=== PATIENT | female | born 2005 | race Caucasian/White ===

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

== ENCOUNTER 2023-03-20 09:23 | Outpatient (CLI) | payer OTHER, SELFPAY | END 2023-03-20 09:24 | disposition home or self-care (01) | PROVIDERS: PCP Family Medicine; Visit Provider Family Medicine | DX: R63.4 Abnormal weight loss (principal); R11.0 Nausea; Z13.29 Encounter for screening for other suspected endocrine disorder | CPT/HCPCS: 80053; 84443 ==

== ENCOUNTER 2024-04-11 23:04 | Emergency (ER) | payer OTHER, SELFPAY ==
[2024-04-11 23:11] VITALS: BP 132/80; PULSE 123; RESP 18; TEMP 38; O2SAT 98; BMI 19.4
--- NOTE | 2024-04-11 23:23 | ED.ABDPAIN ---
HPI - Abdominal Pain General Time Seen by Provider: 23:23 <Milagros Escalante MD - Last Filed: 04/12/24 00:27> Date Seen: 04/11/24 <Milagros Escalante MD - Last Filed: 04/12/24 00:27> Chief Complaint: Abdominal Pain <Milagros Escalante MD - Last Filed: 04/12/24 00:27> Stated Complaint: Lower abdominal/back pain, fever <Milagros Escalante MD - Last Filed: 04/12/24 00:27> Time Seen by Provider: 04/11/24 23:23 <Milagros Escalante MD - Last Filed: 04/12/24 00:27> Source: patient and RN notes reviewed <Milagros Escalante MD - Last Filed: 04/12/24 00:27> Mode of arrival: ambulatory <Milagros Escalante MD - Last Filed: 04/12/24 00:27> Limitations: no limitations <Milagros Escalante MD - Last Filed: 04/12/24 00:27> History of Present Illness HPI narrative: Patient is a very pleasant 18-year-old female currently on control with history of chronic back pain who comes to the emergency room with her mom for evaluation regarding fever, urinary symptoms increasing right-sided back and abdominal pain. Patient had the onset of urinary frequency urgency last SaturdayApril 05. She tried natural remedies and thought maybe that her symptoms improved somewhat but she started experiencing right flank and abdominal pain and this is gradually worsened and today she now has a fever and nausea. As an infant Anastasiia had ureteral reflux and was on a prophylactic antibiotic from 3 months until 1 years of age. No known infections during her childhood. She is rate the in the pain in her abdomen a 7/10 and her back of 10/10. She has not noticed any blood in her urine. She is very nauseated. Patient is sexually active, started her last pack of control pills on April 05 after a normal period. Is sexually active with 1 partner and this is unprotected. Patient has had diarrhea but is nonbloody. Maternal grandmother with history of Crohn's disease. <Milagros Escalante MD - Last Filed: 04/12/24 00:27> Related Data Home Medications: Previous Rx's ?Medication ?Instructions ?Recorded dextroamphetamine-amphetamine 20 20 mg PO QDAY #90 tabs 01/03/24 mg tablet norgestimate 0.25 mg-ethinyl 1 tab PO QDAY #84 tabs 03/23/24 estradiol 35 mcg tablet venlafaxine 150 mg 150 mg PO DAILY #90 caps 03/23/24 capsule,extended release 24 hr <Milagros Escalante MD - Last Filed: 04/12/24 00:27> Allergies/Adverse Reactions: Allergies Allergy/AdvReac Type Severity Reaction Status Date / Time No Known Drug Allergies Allergy Verified 03/23/24 14:29 <Milagros Escalante MD - Last Filed: 04/12/24 00:27> Review of Systems Status of ROS Reports: 10 or more systems reviewed and unremarkable except as noted in History and below <Milagros Escalante MD - Last Filed: 04/12/24 00:27> Const Reports: fever, chills and fatigue <Milagros Escalante MD - Last Filed: 04/12/24 00:27> Eyes Denies: change in vision <Milagros Escalante MD - Last Filed: 04/12/24 00:27> ENMT Denies: throat pain, neck pain or nasal congestion <Milagros Escalante MD - Last Filed: 04/12/24 00:27> Cardio Denies: chest pain, swelling of feet/ankles or shortness of breath with exertion <Milagros Escalante MD - Last Filed: 04/12/24 00:27> Resp Denies: shortness of breath <Milagros Escalante MD - Last Filed: 04/12/24 00:27> GI Reports: abdominal pain, nausea and diarrhea; Denies: vomiting or blood in stool <Milagros Escalante MD - Last Filed: 04/12/24 00:27> Reports: painful urination, urinary frequency and urinary urgency <Milagros Escalante MD - Last Filed: 04/12/24 00:27> Musculo Reports: back pain (Right flank); Denies: neck pain <Milagros Escalante MD - Last Filed: 04/12/24 00:27> Integ/Breast Denies: rash <Milagros Escalante MD - Last Filed: 04/12/24 00:27> Endo Reports: fatigue <Milagros Escalante MD - Last Filed: 04/12/24 00:27> PFSH PFSH Family History: Family History Other Thyroid disease <Milagros Escalante MD - Last Filed: 04/12/24 00:27> Social History: Social History Smoking Status: Never smoker <Milagros Escalante MD - Last Filed: 04/12/24 00:27> Exam Narrative: Exam Narrative: Alert and oriented. Nontoxic in appearance but definitely fatigued. External ears eyes nose clear. Mentating normally. Lips are dry. Moist mucous membranes. Heart with a tachycardic rate but normal rhythm. Lungs are clear bilaterally. Abdomen is with some tenderness right-sided with positive right CVA tenderness with percussion. Lower extremities without edema. <Milagros Escalante MD - Last Filed: 04/12/24 00:27> Const: Vital Signs, click to edit/add: Vital Signs - 24 hr 04/11/24 23:11 Temperature 100.4 F H Pulse Rate [Left P ulse Oximeter] 123 H Respiratory Rate 18 Blood Pressure [Ri ght Upper Arm] 132/80 Pulse Oximetry 98 Oxygen Delivery Me thod Room Air <Milagros Escalante MD - Last Filed: 04/12/24 00:27> Vital Signs, click to edit/add: Vital Signs - 24 hr 04/11/24 23:11 Temperature 100.4 F H Pulse Rate [Left P ulse Oximeter] 123 H Respiratory Rate 18 Blood Pressure [Ri ght Upper Arm] 132/80 Pulse Oximetry 98 Oxygen Delivery Me thod Room Air <Emerson Marte MD - Last Filed: 04/12/24 02:06> Documenting provider has reviewed patient's vital signs: yes <Milagros Escalante MD - Last Filed: 04/12/24 00:27> Course Course ED Course: Differential diagnosis includes but is not limited to pyelonephritis, UTI, kidney stone, Crohn's flare, viral gastroenteritis, STI. Will place IV, give 1 L of normal saline, Toradol 15 mg IV, Zofran 4 mg IV. Will check CBC, comprehensive panel, lactate, blood culture x1. Will also add procalcitonin. Given patient's onset of fever, tachycardia obviously concerned about possible sepsis. She does not meet criteria for severe sepsis at this time. Will also test for GC chlamydia with history of unprotected sex. [place] [id number] of the abdomen and pelvis. Following collection of blood culture patient was given Rocephin 1 g IV. <Milagros Escalante MD - Last Filed: 04/12/24 00:27> Reevaluation(s) Reevaluation #1: This patient is signed out to my colleague Dr. Marte for CT and laboratory results as well as disposition. <Milagros Escalante MD - Last Filed: 04/12/24 00:27> Time of Reevaluation #2: 02:04 <Emerson Marte MD - Last Filed: 04/12/24 02:06> Reevaluation #2: CT independently interpreted by javi consistent with acute pyelonephritis. Mild elevation in the CRP but normal lactate, normal procalcitonin, normal comprehensive panel with no evidence for acute renal failure. <Emerson Marte MD - Last Filed: 04/12/24 02:06> Vital Signs Vital signs: Initial Vital Signs Temperature 100.4 F H 04/11/24 23:11 Temperature Source Temporal Artery Scan 04/11/24 23:11 Pulse Rate 123 H 04/11/24 23:11 Pulse Rhythm Regular 04/11/24 23:11 Respiratory Rate 18 04/11/24 23:11 Blood Pressure 132/80 04/11/24 23:11 Blood Pressure Mean 97 04/11/24 23:11 Blood Pressure Position Sitting 04/11/24 23:11 Pulse Oximetry 98 04/11/24 23:11 Oxygen Delivery Method Room Air 04/11/24 23:11 Vital Signs Temperature 100.4 F H 04/11/24 23:11 Pulse Rate 123 H 04/11/24 23:11 Respiratory Rate 18 04/11/24 23:11 Blood Pressure 132/80 04/11/24 23:11 Pulse Oximetry 98 04/11/24 23:11 Oxygen Delivery Method Room Air 04/11/24 23:11 Temperature 100.4 F H 04/11/24 23:11 Pulse Rate 123 H 04/11/24 23:11 Respiratory Rate 18 04/11/24 23:11 Blood Pressure 132/80 04/11/24 23:11 Pulse Oximetry 98 04/11/24 23:11 Oxygen Delivery Method Room Air 04/11/24 23:11 <Milagros Escalante MD - Last Filed: 04/12/24 00:27> Initial Vital Signs Temperature 100.4 F H 04/11/24 23:11 Temperature Source Temporal Artery Scan 04/11/24 23:11 Pulse Rate 123 H 04/11/24 23:11 Pulse Rhythm Regular 04/11/24 23:11 Respiratory Rate 18 04/11/24 23:11 Blood Pressure 132/80 04/11/24 23:11 Blood Pressure Mean 97 04/11/24 23:11 Blood Pressure Position Sitting 04/11/24 23:11 Pulse Oximetry 98 04/11/24 23:11 Oxygen Delivery Method Room Air 04/11/24 23:11 Vital Signs Temperature 100.4 F H 04/11/24 23:11 Pulse Rate 123 H 04/11/24 23:11 Respiratory Rate 18 04/11/24 23:11 Blood Pressure 132/80 04/11/24 23:11 Pulse Oximetry 98 04/11/24 23:11 Oxygen Delivery Method Room Air 04/11/24 23:11 Temperature 100.4 F H 04/11/24 23:11 Pulse Rate 123 H 04/11/24 23:11 Respiratory Rate 18 04/11/24 23:11 Blood Pressure 132/80 04/11/24 23:11 Pulse Oximetry 98 04/11/24 23:11 Oxygen Delivery Method Room Air 04/11/24 23:11 <Emerson Marte MD - Last Filed: 04/12/24 02:06> Medications Administered Medications: Discontinued Medications Generic Name Dose Route Start Last Admin Trade Name Freq PRN Reason Stop Dose Admin Sodium Chloride 1,000 mls @ 1,000 mls/hr 04/11/24 23:31 04/12/24 00:07 0.9 % Sodium Chloride 1000 Ml IV 04/12/24 00:30 1,000 mls/hr .Q1H CRYSTAL Administration Ceftriaxone Sodium 1 gm/ 100 mls @ 200 mls/hr 04/12/24 00:20 04/12/24 01:04 Sodium Chloride IVPB 08/18/24 00:21 Infused ONCE ONE Infusion Ketorolac Tromethamine 15 mg 04/11/24 23:31 04/12/24 00:07 Ketorolac 15 Mg/Ml Inj IVP 04/11/24 23:32 15 mg ONCE ONE Administration Ondansetron HCl 4 mg 04/11/24 23:31 04/12/24 00:07 Ondansetron 2 Mg/Ml Inj IVP 04/11/24 23:32 4 mg ONCE ONE Administration <Milagros Escalante MD - Last Filed: 04/12/24 00:27> Discontinued Medications Generic Name Dose Route Start Last Admin Trade Name Freq PRN Reason Stop Dose Admin Sodium Chloride 1,000 mls @ 1,000 mls/hr 04/11/24 23:31 04/12/24 00:07 0.9 % Sodium Chloride 1000 Ml IV 04/12/24 00:30 1,000 mls/hr .Q1H CRYSTAL Administration Ceftriaxone Sodium 1 gm/ 100 mls @ 200 mls/hr 04/12/24 00:20 04/12/24 01:04 Sodium Chloride IVPB 04/12/24 00:21 Infused ONCE ONE Infusion Ketorolac Tromethamine 15 mg 04/11/24 23:31 04/12/24 00:07 Ketorolac 15 Mg/Ml Inj IVP 04/11/24 23:32 15 mg ONCE ONE Administration Ondansetron HCl 4 mg 04/11/24 23:31 04/12/24 00:07 Ondansetron 2 Mg/Ml Inj IVP 04/11/24 23:32 4 mg ONCE ONE Administration <Emerson Marte MD - Last Filed: 04/12/24 02:06> MDM - Abdominal Pain Lab Data Labs: Lab Results 04/11/24 04/11/24 04/12/24 Range/Units 23:20 23:40 00:01 WBC 17.33 H (4.50-11.00) K/uL RBC 4.65 (4.00-5.20) m/uL Hgb 13.6 (12.0-16.0) gm/dL Hct 40.7 (33.0-51.0) % MCV 88 (80-100) fL MCH 29 (26-34) pg MCHC 33 (32-36) gm/dL RDW Coeff of Hafsa 12.3 (11.5-15.5) % Plt Count 337 (140-440) K/uL Neut % (Auto) 81.2 H (42.0-72.0) % Lymph % (Auto) 6.6 L (20-44) % [place] % (Auto) 11.0 (0.0-11.0) % Eos % (Auto) 0.1 (0.0-7.0) % Baso % (Auto) 0.2 (0.0-3.0) % Neut # (Auto) 14.10 H (1.7-7.0) K/uL Lymph # (Auto) 1.10 (0.90-2.90) K/uL [place] # (Auto) 1.90 H (0.00-0.90) K/UL Eos # (Auto) 0.00 (0.00-0.50) K/uL Baso # (Auto) 0.00 (0.00-0.30) K/uL Abs Immat Gran (auto) 0.20 (0.00-0.30) K/uL Imm/Tot Granulo (auto) 0.9 % Sodium 134 L (135-149) mmol/L Potassium 3.4 L (3.6-5.1) mmol/L Chloride 101 (96-114) mmol/L Carbon Dioxide 23 (20-32) mmol/L Anion Gap 10 (7-15) mEq/L BUN 9 (5-24) mg/dL Creatinine 0.7 (0.5-1.5) mg/dL Estimated Creat Clear 110.16 Estimated GFR 127 ml/min Glucose 98 (60-115) mg/dL Lactate 0.9 (0.5-1.9) mmol/L Calcium 9.4 (8.4-10.6) mg/dL Total Bilirubin 1.2 (0.1-1.5) mg/dL AST 28 (12-35) U/L ALT 18 (4-35) U/L Alkaline Phosphatase 71 (40-150) U/L C-Reactive Protein 8.7 H (0.5-1.0) mg/dL Total Protein 7.6 (6.0-8.3) g/dL Albumin 4.6 (3.3-5.0) g/dL Procalcitonin 0.11 (<0.50) ng/mL Urine Color Yellow (Yellow) Urine Appearance Clear (Clear) Urine pH 6.5 (5.0-8.5) Ur Specific [place] 1.015 (1.000-1.030) Urine Protein Negative (Negative) Urine Glucose (UA) Negative (Negative) Urine Ketones 2+ A (Negative) Urine Blood 1+ A (Negative) Urine Nitrite Negative (Negative) Urine Bilirubin Negative (Negative) Urine Urobilinogen 0.2 (0.2-1.0) Ur Leukocyte Esterase 1+ A (Negative) Urine RBC 2-5 A (0-2) Urine WBC 2-5 (0-5) Ur Squamous Epith Cells None (None-Few) Urine Bacteria Few A (None) Urine HCG, Qual Negative (Negative) C.trachomatis Ampl DNA NOT DETECTED (No Detected) N.gonorrhoeae Ampl DNA NOT DETECTED (No Detected) Lab Acknowledgement Test Added <Milagros Escalante MD - Last Filed: 04/12/24 00:27> Lab Results 04/11/24 04/11/24 04/12/24 Range/Units 23:20 23:40 00:01 WBC 17.33 H (4.50-11.00) K/uL RBC 4.65 (4.00-5.20) m/uL Hgb 13.6 (12.0-16.0) gm/dL Hct 40.7 (33.0-51.0) % MCV 88 (80-100) fL MCH 29 (26-34) pg MCHC 33 (32-36) gm/dL RDW Coeff of Hafsa 12.3 (11.5-15.5) % Plt Count 337 (140-440) K/uL Neut % (Auto) 81.2 H (42.0-72.0) % Lymph % (Auto) 6.6 L (20-44) % [place] % (Auto) 11.0 (0.0-11.0) % Eos % (Auto) 0.1 (0.0-7.0) % Baso % (Auto) 0.2 (0.0-3.0) % Neut # (Auto) 14.10 H (1.7-7.0) K/uL Lymph # (Auto) 1.10 (0.90-2.90) K/uL [place] # (Auto) 1.90 H (0.00-0.90) K/UL Eos # (Auto) 0.00 (0.00-0.50) K/uL Baso # (Auto) 0.00 (0.00-0.30) K/uL Abs Immat Gran (auto) 0.20 (0.00-0.30) K/uL Imm/Tot Granulo (auto) 0.9 % Sodium 134 L (135-149) mmol/L Potassium 3.4 L (3.6-5.1) mmol/L Chloride 101 (96-114) mmol/L Carbon Dioxide 23 (20-32) mmol/L Anion Gap 10 (7-15) mEq/L BUN 9 (5-24) mg/dL Creatinine 0.7 (0.5-1.5) mg/dL Estimated Creat Clear 110.16 Estimated GFR 127 ml/min Glucose 98 (60-115) mg/dL Lactate 0.9 (0.5-1.9) mmol/L Calcium 9.4 (8.4-10.6) mg/dL Total Bilirubin 1.2 (0.1-1.5) mg/dL AST 28 (12-35) U/L ALT 18 (4-35) U/L Alkaline Phosphatase 71 (40-150) U/L C-Reactive Protein 8.7 H (0.5-1.0) mg/dL Total Protein 7.6 (6.0-8.3) g/dL Albumin 4.6 (3.3-5.0) g/dL Procalcitonin 0.11 (<0.50) ng/mL Urine Color Yellow (Yellow) Urine Appearance Clear (Clear) Urine pH 6.5 (5.0-8.5) Ur Specific [place] 1.015 (1.000-1.030) Urine Protein Negative (Negative) Urine Glucose (UA) Negative (Negative) Urine Ketones 2+ A (Negative) Urine Blood 1+ A (Negative) Urine Nitrite Negative (Negative) Urine Bilirubin Negative (Negative) Urine Urobilinogen 0.2 (0.2-1.0) Ur Leukocyte Esterase 1+ A (Negative) Urine RBC 2-5 A (0-2) Urine WBC 2-5 (0-5) Ur Squamous Epith Cells None (None-Few) Urine Bacteria Few A (None) Urine HCG, Qual Negative (Negative) C.trachomatis Ampl DNA NOT DETECTED (No Detected) N.gonorrhoeae Ampl DNA NOT DETECTED (No Detected) Lab Acknowledgement Test Added <Emerson Marte MD - Last Filed: 04/12/24 02:06> Discharge Plan Discharge Prescriptions: No Action venlafaxine 150 mg capsule,extended release 24hr 150 mg PO DAILY Qty: 90 3RF norgestimate-ethinyl estradiol 0.25-35 mg-mcg tablet 1 tab PO QDAY Qty: 84 3RF dextroamphetamine-amphetamine 20 mg tablet 20 mg PO QDAY Qty: 90 0RF <Milagros Escalante MD - Last Filed: 04/12/24 00:27> Follow Up/Referrals: Jg Yarbrough MD [Primary Care Provider] - <Milagros Escalante MD - Last Filed: 04/12/24 00:27>
[2024-04-11 23:30] LABS: Appearance Urine Clear (Clear); Bilirubin Urine Negative (Negative); Blood Urine 1+ (Negative); Color Urine Yellow (Yellow); Glucose Urine Negative (Negative); Ketones Urine 2+ (Negative); Leukocyte Esterase Urine 1+ (Negative); Nitrite Urine Negative (Negative); Protein Urine Negative (Negative); Specific Gravity Urine 1.015 (1.000-1.030); Urobilinogen Urine 0.2 (0.2-1.0); pH Urine 6.5 (5.0-8.5)
[2024-04-11 23:42] LABS: Bacteria Urine Few
[2024-04-11 23:47] LABS: Lactate Sepsis w/Reflex* 0.9 mmol/L (0.5-1.9)
[2024-04-11 23:51] LABS: Basophils Percent Auto 0.2 % (0.0-3.0); Eosinophils Percent Auto 0.1 % (0.0-7.0); Hematocrit 40.7 % (33.0-51.0); Hemoglobin* 13.6 gm/dL (12.0-16.0); Immature Granulocytes Pct Auto 0.9 %; Lymphocytes Percent Auto 6.6 % (20-44); Mean Corpuscular HGB Conc 33 gm/dL (32-36); Mean Corpuscular Hemoglobin 29 pg (26-34); Mean Corpuscular Volume 88 fL (80-100); Neutrophils Percent Auto 81.2 % (42.0-72.0); Platelet Count* 337 K/uL (140-440); RDW Coefficient of Variation % 12.3 % (11.5-15.5); Red Blood Count 4.65 m/uL (4.00-5.20); White Blood Count* 17.33 K/uL (4.50-11.00)
[2024-04-11 23:53] LABS: Slide Review Reflex No
[2024-04-12 00:02] LABS: Ur HCG Qualitative* Negative (Negative)
--- NOTE | 2024-04-12 00:02 | CRLHL7_ITS ---
For Patients: As a result of the Century Cures Act, medical imaging exams and procedure reports are released immediately into your electronic medical record. You may view this report before your referring provider. If you have questions, please contact your health care provider. INDICATION: Right flank pain. TECHNIQUE: CT abdomen and pelvis acquired with 58 cc Isovue 370 IV contrast. COMPARISON: None. FINDINGS: Lower chest: Unremarkable. Liver: Unremarkable. Normal in size and attenuation. No suspicious masses. Gallbladder and bile ducts: Unremarkable. No stones or inflammation. No biliary ductal dilatation. Spleen: Unremarkable. Normal in size. No masses. Adrenal glands: Unremarkable. No nodules. Pancreas: Unremarkable. No mass or inflammation. Kidneys: Areas of hypoenhancement in the right kidney. No stones or hydronephrosis. GI tract: Unremarkable. Normal in caliber. No evidence of obstruction. Appendix not definitely visualized. Lymph nodes: No lymphadenopathy. Vasculature: Unremarkable. Omentum/Peritoneum/Abdominal Wall: Unremarkable. No free air or significant free fluid. Pelvis: Unremarkable. Bones: Unremarkable for age. IMPRESSION: Acute right pyelonephritis. Please note that all CT scans at this facility use dose modulation, iterative reconstruction, and/or weight-based dosing when appropriate to reduce radiation dose to as low as reasonably achievable. Dictated by Danny Woo MD @ 04/12/2024 2:01:42 AM (Electronically Signed)
[2024-04-12 00:05] LABS: Albumin* 4.6 g/dL (3.3-5.0); Chloride* 101 mmol/L (96-114)
[2024-04-12 00:06] LABS: Potassium* 3.4 mmol/L (3.6-5.1); Sodium* 134 mmol/L (135-149)
[2024-04-12] MEDS: KETOROLAC 15 MG/ML inj IVP (00:07)
[2024-04-12] MEDS: ONDANSETRON 2 MG/ML inj 4 MG IVP (00:07)
[2024-04-12] MEDS: 0.9 % SODIUM CHLORIDE 1000 ml 1,000 ML IV (00:07)
[2024-04-12 00:11] LABS: Alanine Aminotransferase* 18 U/L (4-35); Alkaline Phosphatase* 71 U/L (40-150); Anion Gap 10 mEq/L (7-15); Aspartate Amino Transferase* 28 U/L (12-35); Bilirubin Total* 1.2 mg/dL (0.1-1.5); Blood Urea Nitrogen* 9 mg/dL (5-24); Calcium* 9.4 mg/dL (8.4-10.6); Carbon Dioxide* 23 mmol/L (20-32); Creatinine* 0.7 mg/dL (0.5-1.5); Est. Creatinine Clearance* 110.16; Estimated Glomerular Filt Rate 127 ml/min; Glucose* 98 mg/dL (60-115); Total Protein* 7.6 g/dL (6.0-8.3)
[2024-04-12 00:12] LABS: C Reactive Protein* 8.7 mg/dL (0.5-1.0)
[2024-04-12] MEDS: cefTRIAXone 1 GM in 0.9 % SODIUM CHLORIDE Mini-bag 100 ML IVPB (00:31)
[2024-04-12 00:37] LABS: Procalcitonin* 0.11 ng/mL (<0.50)
[2024-04-12 01:27] LABS: Chlamydia DNA Amplified* NOT DETECTED (No Detected); GC DNA Amplified* NOT DETECTED (No Detected)
[2024-04-12] MEDS: OXYCODONE 5 MG TABLET PO (02:29)
[2024-04-12 02:55] VITALS: PULSE 95; RESP 18; TEMP 36.7; O2SAT 98
== END 2024-04-12 02:56 | disposition home or self-care (01) ==
PROVIDERS: Emergency Provider Family Medicine; PCP Family Medicine
DX: N10 Acute pyelonephritis (principal)
CPT/HCPCS: 36415; 74177; 80053; 81001; 81025; 83605; 84145; 85025; 86140; 87040; 87086; 87186; 87491; 87591; 96365; 96375; 99284; 99285; A9270; J0696; J1885; J2405; J7030; Q9967

== ENCOUNTER 2024-08-23 12:30 | Outpatient (CLI) | payer OTHER, SELFPAY | END 2024-08-23 12:31 | disposition home or self-care (01) | LOC: NFLDREF 08-25 10:50 | PROVIDERS: PCP Family Medicine; Referring Provider Family Medicine | DX: N12 Tubulo-interstitial nephritis, not specified as acute or chronic (principal) | CPT/HCPCS: 87086 ==

== ENCOUNTER 2024-08-28 15:31 | Outpatient (CLI) | payer OTHER, SELFPAY | END 2024-08-28 15:32 | disposition home or self-care (01) | LOC: LKVREF 15:35 | PROVIDERS: PCP Family Medicine; Visit Provider Family Medicine | DX: R10.13 Epigastric pain (principal); R80.9 Proteinuria, unspecified; R53.83 Other fatigue; R00.0 Tachycardia, unspecified | CPT/HCPCS: 80076; 84443; 87086 ==